=== PATIENT | female | born 1940 | race Caucasian/White ===

== ENCOUNTER 2016-09-22 09:17 | Inpatient (IN) | payer MEDICARE, MEDICAID ==
[~2016-09-22] VITALS: Ht 152.4 cm; Wt 69.0 kg
[2016-09-22] VITALS (7 sets, daily range): BP systolic 113–179; BP diastolic 46–79; PULSE 80–117; TEMP 95.4–98.6
[~2016-09-22 09:17] MED LIST: ACTOS30 MG PO; ASPIRIN 32325 MG/TAB PO; GLUCOPHAGE; TRIAMTERENE W/H1 CAP PO
[2016-09-22 13:15] LABS: PH 6 (5-8); SQUAMOUS EPITHELIAL None Seen /hpf; URINE APPEARANCE Cloudy; URINE BACTERIA None Seen /hpf; URINE BILIRUBIN Negative (NEGATIVE); URINE BLOOD 3+ (NEGATIVE); URINE COLOR Amber; URINE GLUCOSE 3+ (NEGATIVE); URINE KETONE 1+ (NEGATIVE); URINE RBC >50 /hpf; URINE UROBILINOGEN Negative (NEGATIVE); URINE WBC >50 /hpf
[2016-09-22 13:24] LABS: ADJUSTED CALCIUM 9.7 mg/dL (8.4-10.2); ALANINE AMINOTRANSFERASE 47 U/L (9-52); ALBUMIN 3.7 gm/dL (3.5-5.0); ALKALINE PHOSPHATASE 90 U/L (50-136); ANION GAP 12 mmol/L (7-16); BILIRUBIN,TOTAL 0.9 mg/dL (0.0-1.0); BLOOD UREA NITROGEN 27 mg/dL (7-17); CALCIUM 9.5 mg/dL (8.4-10.2); CARBON DIOXIDE 26 mmol/L (22-30); CHLORIDE 99 mmol/L (98-107); CREATININE, serum 1.97 mg/dL (0.52-1.25); GLUCOSE 191 mg/dL (74-106); MAGNESIUM 1.7 mg/dL (1.6-2.3); POTASSIUM 3.7 mmol/L (3.4-5.0); SODIUM 136 mmol/L (137-145); TOTAL PROTEIN 6.5 gm/dL (6.4-8.2)
[2016-09-22] MEDS ORDERED: LEVEMIR100 U/ML SQ (13:33)
[2016-09-22] MEDS ORDERED: LOPRESSOR 550 MG/TAB PO (13:35)
[2016-09-22] MEDS ORDERED: VASOTEC20 MG PO (13:35)
[2016-09-22] MEDS ORDERED: GLUCOPHAGE1000 MG PO (13:37)
[2016-09-22] MEDS ORDERED: LASIX 40MG TABL40 MG PO (13:37)
[2016-09-22 13:38] LABS: TROPONIN-I < 0.012 ng/mL (0.000-0.034)
[2016-09-22] MEDS ORDERED: PRILOSEC 20MG20 MG PO (13:38)
[2016-09-22] MEDS ORDERED: ASPIRIN 81M81 MG/TA2 PO (13:39)
[2016-09-22] MEDS ORDERED: MULTI VITAMINS1 TAB PO (13:39)
[2016-09-22] MEDS ORDERED: CALCIUM CARBON650 M2 PO (13:40)
[2016-09-22 13:56] LABS: THYROID STIMULATING HORMONE < 0.015 uIU/mL (0.465-4.680)
[2016-09-22 14:20] LABS: B-TYPE NATRIURETIC PEPTIDE 3080 pg/mL (0-450)
[2016-09-23] VITALS (7 sets, daily range): BP systolic 109–151; BP diastolic 44–87; PULSE 77–94; TEMP 97.5–97.8
[2016-09-23 07:26] LABS: MEAN CELL VOLUME 94 fl (80.0-100.0); MEAN CORPUSCULAR HGB CONC 30 g/dl (33.0-37.0); MEAN PLATELET VOLUME 10.8 fl (7.4-10.4); PLATELET COUNT 219 K/mm3 (130-400); RED BLOOD COUNT 3.28 M/mm3 (4.10-5.30); REDCELL DISTRIBUTION WIDTH-CV 13.7 % (11.5-14.5); WHITE BLOOD COUNT 17.1 K/mm3 (4.8-10.8)
[2016-09-23 07:28] LABS: HEMATOCRIT 30.7 % (37.0-47.0); HEMOGLOBIN 9.3 g/dl (12.5-16.0); MEAN CORPUSCULAR HEMOGLOBIN 28 pg (27.0-31.0)
[2016-09-23 07:29] LABS: ADD PATHOLOGY DIFF REVIEW NO
[2016-09-23 07:33] LABS: CALCIUM 9.3 mg/dL (8.4-10.2); CREATININE, serum 2.06 mg/dL (0.52-1.25)
[2016-09-23 11:03] LABS: BAND 44 % (0-10); NEUTROPHILS 42 % (42.0-75.2); TOTAL CELLS COUNTED 100
[2016-09-23 11:05] LABS: HYPOCHROMIA 2+; PLATELET ESTIMATE NORMAL (NORMAL)
[2016-09-24] VITALS (66 sets, daily range): BP systolic 99–144; BP diastolic 38–86; PULSE 83–118; TEMP 97.6–98.7; O2SAT 93–98
[2016-09-24 07:19] LABS: BASO % 0.2 % (0.0-2.0); EOS % 0.2 % (0-4.0); GRAN # 9.7 (1.4-6.5); GRAN % 76.7 % (42.2-75.2); LYMPH # 1.6 (1.2-3.4); MEAN CORPUSCULAR HGB CONC 31 g/dl (33.0-37.0); MEAN PLATELET VOLUME 11.3 fl (7.4-10.4); MONO # 1.1 (0.1-0.6); MONO % 8.9 % (1.7-9.3); PLATELET COUNT 240 K/mm3 (130-400); RED BLOOD COUNT 2.96 M/mm3 (4.10-5.30); REDCELL DISTRIBUTION WIDTH-CV 14.1 % (11.5-14.5); WHITE BLOOD COUNT 12.6 K/mm3 (4.8-10.8)
[2016-09-24 07:26] LABS: HEMATOCRIT 26.4 % (37.0-47.0); HEMOGLOBIN 8.3 g/dl (12.5-16.0); MEAN CELL VOLUME 89 fl (80.0-100.0); MEAN CORPUSCULAR HEMOGLOBIN 28 pg (27.0-31.0)
[2016-09-24 07:43] LABS: ADJUSTED CALCIUM 10.1 mg/dL (8.4-10.2); ALBUMIN 2.9 gm/dL (3.5-5.0); BILIRUBIN,TOTAL 0.4 mg/dL (0.0-1.0); CALCIUM 9.2 mg/dL (8.4-10.2); CREATININE, serum 2.2 mg/dL (0.52-1.25); POTASSIUM 3.4 mmol/L (3.4-5.0); TOTAL PROTEIN 5.6 gm/dL (6.4-8.2)
[2016-09-24 16:43] LABS: PROTHROMBIN TIME 11.6 SECONDS (9.7-12.8)
[2016-09-24 16:49] LABS: MEAN CELL VOLUME 88 fl (80.0-100.0); MEAN CORPUSCULAR HGB CONC 32 g/dl (33.0-37.0); MEAN PLATELET VOLUME 11.1 fl (7.4-10.4); PLATELET COUNT 241 K/mm3 (130-400); RED BLOOD COUNT 2.77 M/mm3 (4.10-5.30); REDCELL DISTRIBUTION WIDTH-CV 14.1 % (11.5-14.5); WHITE BLOOD COUNT 14.1 K/mm3 (4.8-10.8)
[2016-09-24 16:51] LABS: HEMATOCRIT 24.5 % (37.0-47.0); HEMOGLOBIN 7.9 g/dl (12.5-16.0); MEAN CORPUSCULAR HEMOGLOBIN 29 pg (27.0-31.0)
[2016-09-25] VITALS (1011 sets, daily range): BP systolic 95–156; BP diastolic 38–85; PULSE 58–83; TEMP 97.6–98.8; O2SAT 71–100
[2016-09-25 07:39] LABS: ADD PATHOLOGY DIFF REVIEW NO
[2016-09-25 07:55] LABS: MEAN CELL VOLUME 89 fl (80.0-100.0); MEAN CORPUSCULAR HGB CONC 32 g/dl (33.0-37.0); MEAN PLATELET VOLUME 10.8 fl (7.4-10.4); PLATELET COUNT 188 K/mm3 (130-400); RED BLOOD COUNT 2.37 M/mm3 (4.10-5.30); REDCELL DISTRIBUTION WIDTH-CV 14.5 % (11.5-14.5); WHITE BLOOD COUNT 8.5 K/mm3 (4.8-10.8)
[2016-09-25 07:56] LABS: CALCIUM 8.7 mg/dL (8.4-10.2); CREATININE, serum 2.3 mg/dL (0.52-1.25); MAGNESIUM 1.7 mg/dL (1.6-2.3); POTASSIUM 3.2 mmol/L (3.4-5.0)
[2016-09-25 07:59] LABS: HEMATOCRIT 21.1 % (37.0-47.0); HEMOGLOBIN 6.8 g/dl (12.5-16.0); MEAN CORPUSCULAR HEMOGLOBIN 29 pg (27.0-31.0)
[2016-09-25 08:28] LABS: BAND 7 % (0-10); MYELOCYTE 3 % (0-0); NEUTROPHILS 70 % (42.0-75.2); TOTAL CELLS COUNTED 100
[2016-09-25 08:29] LABS: HYPOCHROMIA 1+; OVALOCYTES 1+; PLATELET ESTIMATE NORMAL (NORMAL)
[2016-09-25 16:33] LABS: HEMATOCRIT 26.4 % (37.0-47.0); HEMOGLOBIN 8.7 g/dl (12.5-16.0)
[2016-09-26] VITALS: BP 128/48; PULSE 60; TEMP 98.4
[2016-09-26 05:15] VITALS: BP 111/48; PULSE 69; TEMP 97.5
[2016-09-26 06:30] LABS: ADD PATHOLOGY DIFF REVIEW NO
[2016-09-26 06:36] LABS: MEAN CELL VOLUME 88 fl (80.0-100.0); MEAN CORPUSCULAR HGB CONC 32 g/dl (33.0-37.0); MEAN PLATELET VOLUME 10.7 fl (7.4-10.4); PLATELET COUNT 190 K/mm3 (130-400); RED BLOOD COUNT 3.17 M/mm3 (4.10-5.30); REDCELL DISTRIBUTION WIDTH-CV 14.8 % (11.5-14.5); WHITE BLOOD COUNT 7.9 K/mm3 (4.8-10.8)
[2016-09-26 06:38] LABS: HEMATOCRIT 27.8 % (37.0-47.0); MEAN CORPUSCULAR HEMOGLOBIN 28 pg (27.0-31.0)
[2016-09-26 06:46] LABS: CALCIUM 9.1 mg/dL (8.4-10.2); CREATININE, serum 2.36 mg/dL (0.52-1.25); MAGNESIUM 1.8 mg/dL (1.6-2.3); POTASSIUM 3.3 mmol/L (3.4-5.0)
[2016-09-26 07:52] LABS: BAND 6 % (0-10); EOSINOPHIL 1 % (0-4); METAMYELOCYTE 2 % (0-0); MYELOCYTE 7 % (0-0); NEUTROPHILS 61 % (42.0-75.2); TOTAL CELLS COUNTED 100
[2016-09-26 07:53] LABS: HYPOCHROMIA 1+; OVALOCYTES 1+; PLATELET ESTIMATE DECREASED (NORMAL)
[2016-09-26 09:54] VITALS: BP 143/64; PULSE 79; TEMP 97.8
[2016-09-26 12:52] LABS: INR 1.1 (0.8-3.0); PROTHROMBIN TIME 12.3 SECONDS (9.7-12.8)
[2016-09-26 12:54] LABS: PARTIAL THROMBOPLASTIN TIME 33.5 SECONDS (26.0-37.0)
[2016-09-26 14:08] VITALS: BP 124/54; PULSE 66; TEMP 98.6
[2016-09-26 17:11] VITALS: BP 153/51; PULSE 74; TEMP 98
[2016-09-26 19:43] VITALS: BP 177/66; PULSE 87; TEMP 98.5
[2016-09-27 06:49] LABS: ADD PATHOLOGY DIFF REVIEW NO
[2016-09-27 07:01] LABS: MEAN CELL VOLUME 89 fl (80.0-100.0); MEAN CORPUSCULAR HGB CONC 33 g/dl (33.0-37.0); MEAN PLATELET VOLUME 10.1 fl (7.4-10.4); PLATELET COUNT 177 K/mm3 (130-400); RED BLOOD COUNT 2.82 M/mm3 (4.10-5.30); REDCELL DISTRIBUTION WIDTH-CV 15.2 % (11.5-14.5); WHITE BLOOD COUNT 7.1 K/mm3 (4.8-10.8)
[2016-09-27 07:06] LABS: CREATININE, serum 2.23 mg/dL (0.52-1.25); POTASSIUM 3.3 mmol/L (3.4-5.0)
[2016-09-27 07:10] LABS: HEMATOCRIT 25.2 % (37.0-47.0); HEMOGLOBIN 8.2 g/dl (12.5-16.0); MEAN CORPUSCULAR HEMOGLOBIN 29 pg (27.0-31.0)
[2016-09-27 07:55] LABS: BAND 3 % (0-10); BASOPHIL 1 % (0-2); NEUTROPHILS 64 % (42.0-75.2); PLATELET ESTIMATE NORMAL (NORMAL); TOTAL CELLS COUNTED 100
[2016-09-27 10:11] VITALS: BP 124/39; PULSE 81; TEMP 98.2
[2016-09-27 14:10] VITALS: BP 136/48; PULSE 68; TEMP 98.9
[2016-09-27 17:45] VITALS: BP 145/42; PULSE 68; TEMP 97.7
[2016-09-28 04:40] VITALS: BP 157/53; PULSE 70; TEMP 97.2
[2016-09-28 06:28] LABS: BASO % 0.5 % (0.0-2.0); EOS # 0.3 (0.0-0.7); GRAN # 3.8 (1.4-6.5); GRAN % 60.4 % (42.2-75.2); HEMOGLOBIN 7.7 g/dl (12.5-16.0); LYMPH # 1.2 (1.2-3.4); LYMPH % 19.1 % (20.0-51.0); MEAN CELL VOLUME 90 fl (80.0-100.0); MEAN CORPUSCULAR HEMOGLOBIN 29 pg (27.0-31.0); MEAN CORPUSCULAR HGB CONC 32 g/dl (33.0-37.0); MEAN PLATELET VOLUME 10.3 fl (7.4-10.4); MONO # 0.9 (0.1-0.6); MONO % 14.9 % (1.7-9.3); PLATELET COUNT 182 K/mm3 (130-400); RED BLOOD COUNT 2.68 M/mm3 (4.10-5.30); REDCELL DISTRIBUTION WIDTH-CV 15.2 % (11.5-14.5); WHITE BLOOD COUNT 6.3 K/mm3 (4.8-10.8)
[2016-09-28 06:37] LABS: CALCIUM 9.6 mg/dL (8.4-10.2); CREATININE, serum 2.19 mg/dL (0.52-1.25); POTASSIUM 3.7 mmol/L (3.4-5.0)
[2016-09-28 11:30] VITALS: BP 142/56; PULSE 68; TEMP 98.9
[2016-09-28 13:30] VITALS: BP 136/48; PULSE 78; TEMP 98.2
[2016-09-28 18:15] VITALS: BP 148/68; PULSE 76; TEMP 98.9
[2016-09-28 20:00] VITALS: BP 140/61; PULSE 74; TEMP 98.3
[2016-09-29 00:05] VITALS: BP 146/59; PULSE 76; TEMP 98.5
[2016-09-29 03:23] VITALS: BP 158/54; PULSE 74; TEMP 98.6
[2016-09-29 06:35] LABS: HEMATOCRIT 24.4 % (37.0-47.0); HEMOGLOBIN 7.8 g/dl (12.5-16.0)
[2016-09-29 06:45] LABS: CALCIUM 9.9 mg/dL (8.4-10.2); CREATININE, serum 2.03 mg/dL (0.52-1.25); POTASSIUM 3.7 mmol/L (3.4-5.0)
[2016-09-29 09:58] VITALS: BP 150/61; PULSE 64; TEMP 98.2
[2016-09-29] MEDS ORDERED: ELIQUIS 5MG PO (10:57)
[2016-09-29] MEDS ORDERED: FERROUS SU325 MG/TAB PO (10:57)
[2016-09-29] MEDS ORDERED: APRESOLINE 25MG25 MG PO (11:00)
[2016-09-29] MEDS ORDERED: LOPRESSOR 225 MG/TAB PO (11:01)
[2016-09-29] MEDS ORDERED: VASOTEC 5MG5 MG/TAB PO (11:01)
[2016-09-29] MEDS ORDERED: TYLENOL 325MG325 MG PO (11:04)
[2016-09-29] MEDS ORDERED: MAG-OX 400400 MG/TAB PO (11:04)
[2016-09-29] MEDS ORDERED: GOOD NEIGH1200 MG/15 PO (11:05)
[2016-09-29] MEDS ORDERED: DULCOLAX S10 MG/SUPP RC (11:05)
[2016-09-29] MEDS ORDERED: SENOKOT S 50 MG1 TAB PO (11:06)
[2016-09-29] MEDS ORDERED: NOVLOG SQ (11:06)
[2016-09-29] MEDS ORDERED: LEVEMIR FLEX100 U/ML SQ (11:07)
[2016-09-29] MEDS ORDERED: NYSTATIN CREAM15 GM TP (11:07)
[2016-09-29] MEDS ORDERED: K-TAB20 PO (11:09)
[2016-09-29] MEDS ORDERED: NORCO 325 MG-51 TAB PO (11:10)
[2016-09-29] MEDS ORDERED: PACERONE200 MG PO (11:13)
[2016-09-29 13:51] VITALS: BP 150/61; PULSE 64; TEMP 98.2
[2016-09-29 14:39] VITALS: BP 148/71; PULSE 69; TEMP 98.6
== END 2016-09-29 15:25 | disposition swing bed (61) | DRG 481 ==
LOC: SURG 12:05 → ICU 09-24 22:47 → SURG 09-25 17:52
PROVIDERS: Internal Medicine; Internal Medicine Interventional Cardiology; Internal Medicine Nephrology; Nurse Practitioner Family; Orthopaedic Surgery
PROC: 0QS706Z Reposition Left Upper Femur with Intramedullary Internal Fixation Device, Open Approach (ICD-10-PCS; principal; 2016-09-22 18:00)
DX: M80.052A Age-related osteoporosis with current pathological fracture, left femur, initial encounter for fracture (principal); N39.0 Urinary tract infection, site not specified; N17.9 Acute kidney failure, unspecified; I69.351 Hemiplegia and hemiparesis following cerebral infarction affecting right dominant side; F05 Delirium due to known physiological condition; Z66 Do not resuscitate; W18.30XA Fall on same level, unspecified, initial encounter; I48.0 Paroxysmal atrial fibrillation; I12.9 Hypertensive chronic kidney disease with stage 1 through stage 4 chronic kidney disease, or unspecified chronic kidney disease; E11.22 Type 2 diabetes mellitus with diabetic chronic kidney disease; N18.3 Chronic kidney disease, stage 3 (moderate); E11.42 Type 2 diabetes mellitus with diabetic polyneuropathy; I69.320 Aphasia following cerebral infarction; Z87.891 Personal history of nicotine dependence; F03.90 Unspecified dementia, unspecified severity, without behavioral disturbance, psychotic disturbance, mood disturbance, and anxiety; I27.2 Other secondary pulmonary hypertension; D50.0 Iron deficiency anemia secondary to blood loss (chronic); I49.5 Sick sinus syndrome; E87.6 Hypokalemia
CPT/HCPCS: 99223-AI; 99232-AI; 99233-AI; 99239; A9284; C1713; C1751; C9113; J0282; J0690; J0696; J1100; J1170; J1644; J1815; J1940; J2250; J2270; J2370; J2405; J2704; J2765; J3010; J3480; J7030; J7040; J7060; P9016

== ENCOUNTER 2016-10-11 11:47 | Inpatient (IN) | payer MEDICARE, MEDICAID ==
[~2016-10-11] VITALS: Ht 154.9 cm; Wt 81.8 kg
[~2016-10-11 11:47] MED LIST changes: +APRESOLINE 25MG25 MG PO; +ASPIRIN 81M81 MG/TA2 PO; +CALCIUM CARBON650 M2 PO; +DULCOLAX S10 MG/SUPP RC; +ELIQUIS 5MG PO; +FERROUS SU325 MG/TAB PO; +GLUCOPHAGE1000 MG PO; +GOOD NEIGH1200 MG/15 PO; +K-TAB20 PO; +LASIX 40MG TABL40 MG PO; +LEVEMIR FLEX100 U/ML SQ; +LEVEMIR100 U/ML SQ; +LOPRESSOR 225 MG/TAB PO; +LOPRESSOR 550 MG/TAB PO; +MAG-OX 400400 MG/TAB PO; +MULTI VITAMINS1 TAB PO; +NORCO 325 MG-51 TAB PO; +NOVLOG SQ; +NYSTATIN CREAM15 GM TP; +PACERONE200 MG PO; +PRILOSEC 20MG20 MG PO; +SENOKOT S 50 MG1 TAB PO; +TYLENOL 325MG325 MG PO; +VASOTEC 5MG5 MG/TAB PO; +VASOTEC20 MG PO
[2016-10-11 15:02] VITALS: BP 133/36; PULSE 54; TEMP 97
--- NOTE | 2016-10-11 15:09 | NUR ---
Pt transfered from [facility]. Pt lethargic and unable to answer admission questions. Pt's family answered admission questions. Pt's family oriented to rm, call light, bed button and rm service. Pt came in with carmichael placed and urine looked dark bloody. Dr. Flores notified pt's arrival to hospital. Call light in reach.
[2016-10-11] MEDS ORDERED: ZOFRAN 4MG T4 MG/TAB PO (15:13)
[2016-10-11] MEDS ORDERED: FERROUS SU325 MG/TAB PO (15:16)
[2016-10-11] MEDS ORDERED: LEVEMIR100 U/ML SQ (15:17)
[2016-10-11] MEDS ORDERED: TYLENOL 325MG325 MG PO (15:18)
[2016-10-11] MEDS ORDERED: IPRATROPIUM BROM3 M1 IH (15:21)
[2016-10-11] MEDS ORDERED: ULTRAM 50MG TAB50 MG PO (15:22)
--- NOTE | 2016-10-11 16:34 | NUR ---
Dr. Flores talking to pt's family in . Call light in reach.
[2016-10-11 17:08] LABS: BASO # 0.1 (0.0-0.2); BASO % 0.9 % (0.0-2.0); EOS # 0.2 (0.0-0.7); EOS % 1.6 % (0-4.0); GRAN # 8.6 (1.4-6.5); GRAN % 78.7 % (42.2-75.2); LYMPH # 0.9 (1.2-3.4); LYMPH % 8.1 % (20.0-51.0); MEAN CELL VOLUME 98 fl (80.0-100.0); MEAN CORPUSCULAR HGB CONC 31 g/dl (33.0-37.0); MEAN PLATELET VOLUME 9.9 fl (7.4-10.4); MONO # 1.1 (0.1-0.6); MONO % 10.2 % (1.7-9.3); PLATELET COUNT 344 K/mm3 (130-400); RED BLOOD COUNT 2.79 M/mm3 (4.10-5.30); REDCELL DISTRIBUTION WIDTH-CV 19.4 % (11.5-14.5)
[2016-10-11 17:11] LABS: HEMATOCRIT 27.4 % (37.0-47.0); HEMOGLOBIN 8.6 g/dl (12.5-16.0); MEAN CORPUSCULAR HEMOGLOBIN 31 pg (27.0-31.0)
--- NOTE | 2016-10-11 17:12 | NUR ---
Pt lethargic and refused to eat at this time. Pt's family asked for protein shake. GREER Augustine ordered it for pt. Call light in reach.
[2016-10-11 17:18] LABS: ALBUMIN 2.8 gm/dL (3.5-5.0); BILIRUBIN,TOTAL 0.4 mg/dL (0.0-1.0); CALCIUM 10.1 mg/dL (8.4-10.2); CREATININE, serum 3.44 mg/dL (0.52-1.25); POTASSIUM 5.6 mmol/L (3.4-5.0); TOTAL PROTEIN 5.4 gm/dL (6.4-8.2)
[2016-10-11 17:53] LABS: COLLECTION METHOD CLEAN CATCH
[2016-10-11 18:25] LABS: MUCOUS Present /lpf; PH 5 (5-8); SQUAMOUS EPITHELIAL 0-2 /hpf; URINE APPEARANCE Cloudy; URINE BACTERIA Rare /hpf; URINE BILIRUBIN Negative (NEGATIVE); URINE BLOOD 3+ (NEGATIVE); URINE COLOR Yellow; URINE GLUCOSE Negative (NEGATIVE); URINE KETONE Negative (NEGATIVE); URINE LEUKOCYTE ESTERASE 1+ (NEGATIVE); URINE NITRATE Negative (NEGATIVE); URINE PROTEIN(semi-quant) 1+ (NEGATIVE); URINE RBC >50 /hpf; URINE UROBILINOGEN Negative (NEGATIVE); URINE WBC 20-50 /hpf
[2016-10-11 18:38] LABS: PHOSPHOROUS 6.5 mg/dL (2.5-4.5)
--- NOTE | 2016-10-11 19:35 | NUR ---
Report given to GREER Dietz. supervisor pumping, Peter notified regarding Pamidorate IV and she'll bring it up from pharmacy which is closed at this time. Pt resting in bed. Call light in reach.
--- NOTE | 2016-10-11 20:30 | NUR ---
Initial shift assessment done- denies pain, family at bedside, lethargic, answers questions aprropriately,immedicately falls back asleep, Kelly with clear yellow urine
[2016-10-11 23:11] VITALS: BP 182/53; PULSE 70; TEMP 97.5
[2016-10-12 02:34] VITALS: BP 162/40; PULSE 75; TEMP 98.6
--- NOTE | 2016-10-12 06:27 | NUR ---
Did sleep most of the night, no requests,repositioned, o2 remains at 4L/nc, carmichael catheter had 600c total urine out this 12 hour shift-
--- NOTE | 2016-10-12 07:55 | NUR ---
Report received from GREER Dietz. Pt sleeping soundly in bed. Call light in reach.
[2016-10-12 08:30] VITALS: BP 125/45; PULSE 63; TEMP 97.6
--- NOTE | 2016-10-12 08:43 | NUR ---
Pt lethargic and drawsy. Pt able to take pills and fell right back to sleep. Pt's breakfast has been ordered. Call light in reach.
[2016-10-12 09:18] LABS: BASO # 0.1 (0.0-0.2); BASO % 1.2 % (0.0-2.0); EOS # 0.1 (0.0-0.7); EOS % 1.4 % (0-4.0); GRAN # 7.6 (1.4-6.5); GRAN % 77.9 % (42.2-75.2); LYMPH # 0.9 (1.2-3.4); LYMPH % 9.6 % (20.0-51.0); MEAN CELL VOLUME 100 fl (80.0-100.0); MEAN CORPUSCULAR HGB CONC 30 g/dl (33.0-37.0); MEAN PLATELET VOLUME 10.5 fl (7.4-10.4); MONO # 0.9 (0.1-0.6); MONO % 9.3 % (1.7-9.3); PLATELET COUNT 402 K/mm3 (130-400); RED BLOOD COUNT 2.73 M/mm3 (4.10-5.30); REDCELL DISTRIBUTION WIDTH-CV 19.3 % (11.5-14.5)
--- NOTE | 2016-10-12 09:25 | NUR ---
tin worker met with patient and called daughter, Claritza #[phone] to discuss discharge planning. Patient is known to this pediatric social worker from previous admission. Patient was transferred to [facility]. Patient had been moved back to acute care before her transfer to this hospital as her condition had worsened. tin worker will continue to follow and assist with securing a safe discharge plan. Patient's primary care provider is Josiah Mackey. Patient has Medicare and Medicaid. Patient lived alone prior to illnesses.
[2016-10-12 09:28] LABS: HEMATOCRIT 27.3 % (37.0-47.0); HEMOGLOBIN 8.1 g/dl (12.5-16.0); MEAN CORPUSCULAR HEMOGLOBIN 30 pg (27.0-31.0)
[2016-10-12 09:38] LABS: ALBUMIN 2.7 gm/dL (3.5-5.0); CREATININE, serum 3.51 mg/dL (0.52-1.25); PHOSPHOROUS 6.9 mg/dL (2.5-4.5); POTASSIUM 5.2 mmol/L (3.4-5.0)
--- NOTE | 2016-10-12 11:37 | NUR ---
Pt's family visiting. Pt asked for bed loco to void. Pt reminded pt has carmichael in. Pt c/o lower back pain. Pt repositioned. Call light in reach.
[2016-10-12 13:12] VITALS: BP 143/49; PULSE 74; TEMP 97.3
--- NOTE | 2016-10-12 14:41 | NUR ---
Pt resting in bed and pt's family in rm. Call light in reach.
[2016-10-12 18:03] VITALS: BP 147/47; PULSE 78; TEMP 97.6
--- NOTE | 2016-10-12 18:17 | NUR ---
Pt awaken by GREER Augustine to take PO med and fell right back to sleep. Pt's family in . Call light in reach.
--- NOTE | 2016-10-12 19:44 | NUR ---
Report given to GREER Hills. Pt sleeping soundly in bed. Call light in reach.
--- NOTE | 2016-10-12 19:50 | NUR ---
Patient report received from GREER Augustine at shift change. Upon assessment patient is sleeping. Arouses easily with verbal stimuli, responds to questions appropriately, but the falls back to sleep quickly. Significant edema to upper and lower extremities. Weeping noted to right upper ext. Assessment completed and documented. Family currently at bedside. No needs at this time.
[2016-10-12 21:04] VITALS: BP 140/51; PULSE 75; TEMP 97.7
--- NOTE | 2016-10-12 22:20 | NUR ---
Patient turned to left side at this time. Legs and arms propped on pillows. Dressings to right arm replaced at this time, saturated from weeping. Abd fold cleaned and Nystatin cream applied, Guaze placed in fold to keep area dry. Left panis is excoriated, cracked and slightly bleedings while right side is just slightly reddened. No other needs observed/reported at this time.
[2016-10-13] VITALS (7 sets, daily range): BP systolic 143–173; BP diastolic 35–52; PULSE 73–90; TEMP 97.6–98.4
--- NOTE | 2016-10-13 00:45 | NUR ---
Patient appears restless upon rounding. Reports pain in left leg. Turned patient to right side at this time. Propped legs and arms on pillows. Patient reports decreased pain/discomfort and is content with position. No other needs at this time.
--- NOTE | 2016-10-13 07:07 | NUR ---
Patient report given to GREER Augustine. No needs observed at this time.
--- NOTE | 2016-10-13 07:09 | NUR ---
Patient report given to GREER Augustine. No needs observed/reported at this time.
--- NOTE | 2016-10-13 07:49 | NUR ---
Report received from GREER Hills. Pt sleeping soundly in bed. Pt's breakfast has been ordered by GREER Augustine per pt's family's request. Call light in reach.
[2016-10-13 08:07] LABS: BASO # 0.1 (0.0-0.2); BASO % 1.4 % (0.0-2.0); EOS # 0.1 (0.0-0.7); EOS % 1.6 % (0-4.0); GRAN # 6.6 (1.4-6.5); GRAN % 82.3 % (42.2-75.2); LYMPH # 0.5 (1.2-3.4); LYMPH % 5.7 % (20.0-51.0); MEAN CELL VOLUME 98 fl (80.0-100.0); MEAN CORPUSCULAR HGB CONC 31 g/dl (33.0-37.0); MEAN PLATELET VOLUME 10.1 fl (7.4-10.4); MONO # 0.7 (0.1-0.6); MONO % 8.6 % (1.7-9.3); PLATELET COUNT 360 K/mm3 (130-400); RED BLOOD COUNT 2.73 M/mm3 (4.10-5.30); REDCELL DISTRIBUTION WIDTH-CV 19.1 % (11.5-14.5)
[2016-10-13 08:08] LABS: HEMATOCRIT 26.8 % (37.0-47.0); HEMOGLOBIN 8.3 g/dl (12.5-16.0); MEAN CORPUSCULAR HEMOGLOBIN 30 pg (27.0-31.0)
[2016-10-13 08:14] LABS: ALBUMIN 2.7 gm/dL (3.5-5.0); CREATININE, serum 3.35 mg/dL (0.52-1.25); PHOSPHOROUS 6.4 mg/dL (2.5-4.5); POTASSIUM 5.1 mmol/L (3.4-5.0)
--- NOTE | 2016-10-13 08:36 | NUR ---
Pt awaked by GREER Augustine to take meds. Pt refused to have breakfast at this time when asked. Pt fell right back to sleep. Call light in reach.
--- NOTE | 2016-10-13 12:21 | NUR ---
Visit attempted and pt sleeping soundly in bed. Call light in reach.
--- NOTE | 2016-10-13 13:06 | NUR ---
Pt resting in bed comfortably and denied pain. Pt's family visiting in rm. Call light in reach.
--- NOTE | 2016-10-13 14:54 | NUR ---
Pt's family reports pt was awake and asked for Glucerna. Pt now sleeping soundly again. Call light in reach. Pt's family in rm.
--- NOTE | 2016-10-13 17:37 | NUR ---
Pt had incontinent BM and pericare given and nystatin applied. Pt's family ordered dinner. Pt taking a nap after pt's family visit. Call light in reach.
--- NOTE | 2016-10-13 18:43 | NUR ---
Pt having dinner in bed and pt's family assisting pt. Pt denied pain. Pt more alert and awake. Call light in reach.
--- NOTE | 2016-10-13 19:42 | NUR ---
Report given to GREER Plaza.
--- NOTE | 2016-10-13 20:46 | NUR ---
Pt sleeping at this time. Assessment complete. A&Ox3 wth some forgetfulness. Lungs sounds diminished in bases bilaterally, clear in upper lobes bilaterally. Kelly to dependent drainage without difficulty with clear yellow urine. Pt denies pain at this time. Pt denies any needs at this time. Call light in reach. will continue to monitor.
[2016-10-14 04:59] VITALS: BP 155/49; PULSE 88; TEMP 97.7
--- NOTE | 2016-10-14 06:08 | NUR ---
Pt had uneventful night. Pt slept throughout the shift with even and unlabored respiraitons. Pt denies pain throughout the shift. Kelly to dependent drainage without difficulty. Call light in reach. Bed alarm on. Will continue to monitor.
[2016-10-14 06:57] LABS: BASO # 0.1 (0.0-0.2); BASO % 1.4 % (0.0-2.0); EOS # 0.1 (0.0-0.7); GRAN # 5.1 (1.4-6.5); GRAN % 78.6 % (42.2-75.2); LYMPH # 0.5 (1.2-3.4); LYMPH % 7.6 % (20.0-51.0); MEAN CELL VOLUME 99 fl (80.0-100.0); MEAN CORPUSCULAR HGB CONC 31 g/dl (33.0-37.0); MONO # 0.7 (0.1-0.6); MONO % 10.1 % (1.7-9.3); PLATELET COUNT 312 K/mm3 (130-400); RED BLOOD COUNT 2.72 M/mm3 (4.10-5.30); REDCELL DISTRIBUTION WIDTH-CV 19.1 % (11.5-14.5)
[2016-10-14 06:59] LABS: HEMOGLOBIN 8.3 g/dl (12.5-16.0); MEAN CORPUSCULAR HEMOGLOBIN 31 pg (27.0-31.0)
[2016-10-14 07:10] LABS: ALBUMIN 2.5 gm/dL (3.5-5.0); CALCIUM 9.4 mg/dL (8.4-10.2); CREATININE, serum 2.94 mg/dL (0.52-1.25); PHOSPHOROUS 5.8 mg/dL (2.5-4.5); POTASSIUM 4.5 mmol/L (3.4-5.0)
--- NOTE | 2016-10-14 07:30 | NUR ---
Report received from GREER Plaza. Care transferred at this time.
[2016-10-14 08:03] VITALS: BP 170/51; PULSE 86; TEMP 98
--- NOTE | 2016-10-14 09:57 | NUR ---
SHERIDAN met with Dr. Martin in regards to patient's case. Dr. Martin requesting IPR screen for the patient. Referral made to CLYDE Acosta director.
--- NOTE | 2016-10-14 11:53 | NUR ---
Pt alert but is not oriented x 4. Lungs clear, BS x 4. Pt sitting up in bed with family at bedside. Will D/c amol later today per Dr. Martin. Call light in reach.
[2016-10-14 12:39] VITALS: BP 153/47; PULSE 84; TEMP 97.5
[2016-10-14 15:55] VITALS: BP 153/44; PULSE 89; TEMP 97.8
--- NOTE | 2016-10-14 19:11 | NUR ---
Uneventful day with pt. D/c carmichael catheter per Dr. Martin. Pt has not eaten much today and has only been given insulin once. Meplex dressing applied to coccyx area and q2 hr turning schedule implemented. Bed alarm has been on but pt has not attempted to get up at all. Pt not strong enough to get up and has been using bed loco all day. Pt monitored closely for excoriation in skin folds and it has been cleaned 4-5 x during shift and barrier/nystatin cream placed during each brief change. Report given to GREER Plaza. Care transferred at this time.
--- NOTE | 2016-10-14 19:41 | NUR ---
Pt laying in bed with family at bedside. Assessment complete. A&O X3. Lung sounds clear in upper lobes bilaterally, diminished in lower lobes bilaterally. Heart rhythm regular. Audible bowel sounds X4. Pt denies pain at this time. Q2 turns implemented, legs floated on pillows. Call light in reach. Bed alarm on. Will continue to monitor.
[2016-10-14 21:43] VITALS: BP 174/58; PULSE 87; TEMP 98
[2016-10-15] VITALS (7 sets, daily range): BP systolic 101–170; BP diastolic 45–62; PULSE 86–102; TEMP 97–98.2
--- NOTE | 2016-10-15 06:21 | NUR ---
Pt had uneventful night. Pt slept throughout the shift with even and unlabored respirations. Q2 turns throughout the shift. Pt denies pain throughout the shift. Call light in reach. Will continue to monitor.
[2016-10-15 07:24] LABS: BASO # 0.1 (0.0-0.2); BASO % 1.5 % (0.0-2.0); EOS # 0.2 (0.0-0.7); EOS % 2.4 % (0-4.0); GRAN # 4.6 (1.4-6.5); LYMPH # 0.6 (1.2-3.4); LYMPH % 10.4 % (20.0-51.0); MEAN CELL VOLUME 96 fl (80.0-100.0); MEAN CORPUSCULAR HGB CONC 32 g/dl (33.0-37.0); MEAN PLATELET VOLUME 10.3 fl (7.4-10.4); MONO # 0.7 (0.1-0.6); MONO % 11.4 % (1.7-9.3); PLATELET COUNT 352 K/mm3 (130-400); RED BLOOD COUNT 2.87 M/mm3 (4.10-5.30); REDCELL DISTRIBUTION WIDTH-CV 18.9 % (11.5-14.5)
--- NOTE | 2016-10-15 07:25 | NUR ---
Report received from GREER Plaza. Care transferred at this time.
[2016-10-15 07:35] LABS: HEMATOCRIT 27.5 % (37.0-47.0); HEMOGLOBIN 8.7 g/dl (12.5-16.0); MEAN CORPUSCULAR HEMOGLOBIN 30 pg (27.0-31.0)
[2016-10-15 07:43] LABS: ALBUMIN 2.5 gm/dL (3.5-5.0); CALCIUM 9.1 mg/dL (8.4-10.2); CREATININE, serum 2.64 mg/dL (0.52-1.25); PHOSPHOROUS 4.8 mg/dL (2.5-4.5); POTASSIUM 3.9 mmol/L (3.4-5.0)
--- NOTE | 2016-10-15 08:54 | NUR ---
Pt awake but is not oriented x4. Pt's orientation changes throughout shift but appears more oriented in morning. Pt ate 50% of breakfast and took meds with no problems. Pt requested HOB to be elevated. Normal S1/S2. Somewhat labored breathing with tachypnea, but no retractions and depth normal. Edema 2+/4 in BLE. Skin folds in abdominal area with significant skin breakdown. This is being treated with barrier cream and being watched closely. Oozing/skin breakdown in coccyx area being treated by nursing staff with ointment and dressing. Call light in reach and bed alarm on.
--- NOTE | 2016-10-15 10:07 | NUR ---
SW awaiting response from [facility] and [facility]. SHERIDAN contacted daughter and reviewed above. SW to continue to follow.
--- NOTE | 2016-10-15 10:25 | NUR ---
Pt ate appx 25% of meal. Blood sugars stable but will keep an eye on them as her appetite is very limited and I will be cautious about giving insulin. Pt has been turned regularly on shift so far and will continue to be monitored closely. Call light in reach.
--- NOTE | 2016-10-15 10:27 | NUR ---
Spoke with family about d/c plan for pt. Pt will d/c no earlier than tomorrow to whichever facility [facility] is able to coordinate with. Pt will continue with diuresis per Dr. Martin. Family stated they would like to wait till Thursday for placement, which Dr. Martin is ok with pending a facility's acceptance. Family understood plan of care and will be updated as things change.
--- NOTE | 2016-10-15 16:21 | NUR ---
SW contacted the patient's daughter reviewed approval for [facility]. Daughter reports her top choice is still [facility] IPR. SW reviewed additional options with the daughter for detention facilities. Daughter requests referral be made to [facility]. Daughter unsure if she would like for the patient to go to [facility] or [facility] as a second choice at this time. Referral made to [facility]. SW to continue to follow. Dr. Ramirez to accept at [facility]: #[phone] or [phone]
--- NOTE | 2016-10-15 16:51 | NUR ---
Pt has tolerated treatment today. Pt has needed bedpan multiple times today r/t IV lasix. Pt skin care provided to coccyx and in skin folds. Dr. Martin will continue IV lasix until pt is d/c tomorrow, , or thu. Pt has not been oriented for the remainder of day but has woken for meds and treatments just fine. Call light in reach, bed alarm on.
--- NOTE | 2016-10-15 18:28 | NUR ---
Pt has had uneventful day with no changes during the shift. She has been repositioned q2 hours to help remove pressure from sacral area. Pt's orientation has fluctuated throughout day but has decreased as the day has gone on. Pt sleeps most of the day and wakes for meals sometimes. Pt has worked with pt and states that she is still weak and unable to ambulate. She will not likely qualify for IPR at this facility.
--- NOTE | 2016-10-15 21:13 | NUR ---
Pt sleeping at this time. Assessment complete. A&Ox3. Lung sounds diminished in bases bilaterally. Heart rhythm regular. Audible bowel sounds X4. Q2 turns. Pt denies pain at this time. Call light in reach. Bed alarm on. Will continue to monitor.
[2016-10-16 01:33] VITALS: BP 156/51; PULSE 88; TEMP 98.4
[2016-10-16 05:21] VITALS: BP 157/58; PULSE 93; TEMP 97.8
--- NOTE | 2016-10-16 06:13 | NUR ---
Pt had uneventful night. Pt slept on and off throughout the shift with even and unlabored respirations. Pt called to pee at least every 30 min, peed any where between 10ml-150ml each time. Q2 turns. Pt denies pain throughout the shift. Call light in reach.
[2016-10-16 07:28] LABS: BASO # 0.1 (0.0-0.2); BASO % 1.2 % (0.0-2.0); EOS # 0.1 (0.0-0.7); EOS % 1.7 % (0-4.0); GRAN # 5.5 (1.4-6.5); LYMPH # 0.9 (1.2-3.4); MEAN CELL VOLUME 97 fl (80.0-100.0); MEAN CORPUSCULAR HGB CONC 31 g/dl (33.0-37.0); MONO # 0.9 (0.1-0.6); MONO % 11.8 % (1.7-9.3); PLATELET COUNT 380 K/mm3 (130-400); RED BLOOD COUNT 3.11 M/mm3 (4.10-5.30); REDCELL DISTRIBUTION WIDTH-CV 19.1 % (11.5-14.5)
[2016-10-16 07:30] LABS: HEMATOCRIT 30.1 % (37.0-47.0); HEMOGLOBIN 9.4 g/dl (12.5-16.0); MEAN CORPUSCULAR HEMOGLOBIN 30 pg (27.0-31.0)
[2016-10-16 07:45] LABS: ALBUMIN 2.8 gm/dL (3.5-5.0); CALCIUM 9.1 mg/dL (8.4-10.2); CREATININE, serum 2.39 mg/dL (0.52-1.25); PHOSPHOROUS 3.8 mg/dL (2.5-4.5); POTASSIUM 3.4 mmol/L (3.4-5.0)
[2016-10-16 08:28] VITALS: BP 161/50; PULSE 90; TEMP 98.5
--- NOTE | 2016-10-16 08:51 | NUR ---
Assessment complete. Patient is alert. Confused to place and time. She denies any pain or difficulty breathing. She does have redenned heels with a quarter-sized area of black tissue to the lateral bottom side of each foot. Both heels are floated on pillows. Patient said she can perceive touch to her heels. Her groin/sacrum is exoriated. She had a small bowel movement and voided on the bedpan. Pericare completed. She has generalized bruising to her upper arms. Patient turned and positioned per comfort. She denies any further needs. CAll light is within reach. Bed alarm on.
--- NOTE | 2016-10-16 10:09 | NUR ---
Patient is sitting in bed eating breakfast at this time. Her daughter is present at the bedside. They deny any needs. Call light is within reach.
[2016-10-16] MEDS ORDERED: PACERONE200 MG PO (11:17)
[2016-10-16] MEDS ORDERED: PEPCID 20MG TAB20 MG PO (11:19)
--- NOTE | 2016-10-16 11:21 | NUR ---
Per orders. Right EJ removed. Sutures removed and manual pressure held after IV was removed. No bleeding noted. I placed a gauze/tegaderm dressing over the site. Patient tolerated this well. I will continue to monitor her site for bleeding.
[2016-10-16] MEDS ORDERED: LASIX 80MG TABL80 MG PO (11:22)
[2016-10-16 11:58] VITALS: BP 163/47; PULSE 84; TEMP 97.9
--- NOTE | 2016-10-16 11:59 | NUR ---
I spoke with Ruben from the wound clinic on the phone. He states patient can be seen outpatient on 10/21/16 @ 1:30pm. I described patients heel condition to him. No new orders.
--- NOTE | 2016-10-16 12:58 | NUR ---
Patients gauze/tegaderm dressing to her old EJ site remains clean, dry, intact. Daughter present at the bedside. Lunch has just arrived. Daughter will help patient eat. They deny any needs. Call light is within reach.
[2016-10-16 13:30] VITALS: BP 163/47; PULSE 84; TEMP 97.9
--- NOTE | 2016-10-16 13:54 | NUR ---
Verbal phone report given to Krista gar [facility]. Questions answered.
--- NOTE | 2016-10-16 14:11 | NUR ---
Patient transferred out of facility by [facility]. Daughter present during transfer. She voided prior to discharge.
--- NOTE | 2016-10-16 14:14 | NUR ---
Sayra with [facility] accepts patient. IPR denies patient. After some discussion, patient has decided to go to [facility] for a skilled stay upon discharge. Discharge orders faxed to [facility] and transportation arranged for 1400 today. Daughter and patient informed of transport time.
== END 2016-10-16 14:12 | DRG 682 ==
LOC: MEDICAL 11:47
PROVIDERS: ADMIT Internal Medicine Nephrology
DX: N17.9 Acute kidney failure, unspecified (principal); G93.41 Metabolic encephalopathy; I50.22 Chronic systolic (congestive) heart failure; I13.0 Hypertensive heart and chronic kidney disease with heart failure and stage 1 through stage 4 chronic kidney disease, or unspecified chronic kidney disease; I69.351 Hemiplegia and hemiparesis following cerebral infarction affecting right dominant side; E87.1 Hypo-osmolality and hyponatremia; E87.2 Acidosis; N39.0 Urinary tract infection, site not specified; E11.22 Type 2 diabetes mellitus with diabetic chronic kidney disease; N18.3 Chronic kidney disease, stage 3 (moderate); I69.320 Aphasia following cerebral infarction; I48.0 Paroxysmal atrial fibrillation; Z79.01 Long term (current) use of anticoagulants; F03.90 Unspecified dementia, unspecified severity, without behavioral disturbance, psychotic disturbance, mood disturbance, and anxiety; D63.1 Anemia in chronic kidney disease; E87.5 Hyperkalemia; E11.65 Type 2 diabetes mellitus with hyperglycemia
CPT/HCPCS: J1815; J1940; J2430; J7030

== ENCOUNTER → 2016-10-21 | Outpatient (CLI) | payer MEDICARE ==
[~2016-10-21] MED LIST changes: +IPRATROPIUM BROM3 M1 IH; +LASIX 80MG TABL80 MG PO; +PEPCID 20MG TAB20 MG PO; +ULTRAM 50MG TAB50 MG PO; +ZOFRAN 4MG T4 MG/TAB PO
== END ==
LOC: WCC 08:55
DX: T25 Burn and corrosion of ankle and foot (principal)
CPT/HCPCS: G0463

== ENCOUNTER → 2016-10-27 | Outpatient (REF) ==
[2016-10-27 20:12] LABS: BASO # 0.1 (0.0-0.2); BASO % 0.9 % (0.0-2.0); EOS % 0.5 % (0-4.0); GRAN # 6.8 (1.4-6.5); GRAN % 79.7 % (42.2-75.2); LYMPH # 0.8 (1.2-3.4); LYMPH % 9.3 % (20.0-51.0); MEAN CELL VOLUME 97 fl (80.0-100.0); MEAN CORPUSCULAR HGB CONC 31 g/dl (33.0-37.0); MEAN PLATELET VOLUME 10.1 fl (7.4-10.4); MONO # 0.8 (0.1-0.6); MONO % 9.3 % (1.7-9.3); PLATELET COUNT 313 K/mm3 (130-400); RED BLOOD COUNT 3.29 M/mm3 (4.10-5.30); REDCELL DISTRIBUTION WIDTH-CV 16.9 % (11.5-14.5); WHITE BLOOD COUNT 8.6 K/mm3 (4.8-10.8)
[2016-10-27 20:22] LABS: CALCIUM 9.6 mg/dL (8.4-10.2); CREATININE, serum 2.45 mg/dL (0.52-1.25); POTASSIUM 4.3 mmol/L (3.4-5.0)
[2016-10-27 20:27] LABS: MEAN CORPUSCULAR HEMOGLOBIN 30 pg (27.0-31.0)
== END ==
LOC: ZCOL.LAB 20:09
PROVIDERS: Internal Medicine
DX: Z01.89 Encounter for other specified special examinations (principal)

== ENCOUNTER → 2017-01-26 | Outpatient (REF) | LOC: ZCOL.LAB 18:45 | DX: E11.40 Type 2 diabetes mellitus with diabetic neuropathy, unspecified (principal) ==